=== PATIENT | male | born 1950 | race Caucasian/White ===

== ENCOUNTER 2019-07-19 09:46 | Day surgery (SDC) | payer MEDICARE, OTHER, SELFPAY ==
[2019-07-16 13:12] VITALS: BMI 33.5
[2019-07-19] VITALS (11 sets, daily range): BP systolic 130–175; BP diastolic 72–94; PULSE 82–96; RESP 14–24; TEMP 36.1–36.6; O2SAT 85–97; BMI 33.5
[2019-07-19] MEDS: LACTATED RINGERS 1,000 ML 42 ML IV (11:43)
--- NOTE | 2019-07-19 11:48 | PM.PREOP ---
Pre-operative Note Interval Note History & Physical reviewed/Exam performed by Physician: Yes Changes to H&P: No
[2019-07-19] MEDS: CEFAZOLIN 2 GM/100 ML FROZ.PIGGY IV (12:30)
--- NOTE | 2019-07-19 13:05 | SUR.OPER ---
Beach chair with Guerline/Carisa shoulder positioner. Lower body on padded OR bed. Head in foam padded head cradle, secured with straps. Non-operative arm secured along side Pillow under knees. Safety belt at thigh. Cloth tape over blanket over lower legs.
--- NOTE | 2019-07-19 13:15 | P.PCN_ITS ---
Procedures Date/Time Date of procedure: 07/19/19 Time of procedure: 12:12 General Procedure description: Ultrasound guided interscalene brachial plexus nerve block for post op pain control after right shoulder arthroscopic rotator cuff repair by Dr. Henry. Risk and benefits of procedure discussed with patient. ASA monitoring applied to patient. O2 given via nasal cannula. 1 mg Versed and 50 mcg fentanyl given for procedural sedation. Skin site was prepped with chlorhexidine and allowed to fully dry. Sterile gloves, mask, hat and probe cover were used to maintain sterility. 2% lidocaine and 30ga needle was used to make a small skin wheal at needle insertion site. Under ultrasound guidance, a 21ga 50mm Pajunk needle was directed into the interscalene groove (middle/anterior scalenes) near the brachial plexus. Patient reported no p arasthesias. After negative aspiration, 20 mL 0.5% ropivicaine and 10mg dexamethasone were injected around brachial plexus. Patient tolerated procedure well.
[2019-07-19] MEDS: BUPIVACAINE 0.5% W/ EPI (PF) VIAL 30 ML INJ (13:52)
[2019-07-19] MEDS: SODIUM CHLORIDE IRRIG SOLUTION 3,000 ML, EPINEPHrine 1 MG IRR (13:52)
--- NOTE | 2019-07-19 14:14 | P.OP_ITS ---
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 Degenerative changes to the labrum. No sign of any tearing of the biceps anchor for tearing of the biceps tendon. High- grade partial tear to the anterior portion of the supraspinatus with a small area of full-thickness tearing. Significant synovitis and bursitis in the subacromial in the subdeltoid space. Impingement lesion in the subacromial space. Closure Type: primary Specimen(s): none sent Applied: implant(s) (Single Arthrex SwiveLock anchor) Estimated Blood Loss (mL): 15 Blood products transfused: none Procedure in detail: On date of service, Patient was met in the holding area. The operative site was signed and witnessed by the OR staff. The surgeries once again discussed with the patient and any remaining questions they had were answered fully. Patient was taken back to the operating theater and placed on the operating table in a supine position. Great care was taken to ensure that all bony prominences were properly padded. Patient was then placed into the beach chair position. The head and neck were properly positioned and secured. A timeout was performed verifying patient's name, procedure, and the operative site. The upper extremity was then prepped and draped in the normal sterile fashion. Previously, the bony anatomy and portal sites were marked out as well as injected with Marcaine with epinephrine. An 11 blade was used to make an incision in the posterior aspect of the shoulder. The camera was placed, and a diagnostic shoulder scope was performed. Findings listed above. Next under direct visualization, a anterior portal was made. Next the camera was placed into the subacromial space. A lateral portal was obtained under direct visualization. A combination of the shaver and vapor wand, a debridement of the inflamed tissue as well as inflamed bursa was performed. The lateral gutter was also cleaned out. This gave us good visualization of the bursal aspect of the rotator cuff as well as the acromial arch. There was an obvious impingement lesion in the acromial arch. Next we turned our attention to the subacromial decompression. Next, a mechanical rasp was then used to do a subacromial decompression. This allowed us to convert the acromion to a type I acromial. This also allowed us to shave down the bony lesion in the acromial space. The rasp was placed into the lateral portal as well as the anterior portal in order to do a complete subacromial decompression. We next turned our attention to the distal clavicle. Using the shaver in the vapor wand we were able to clean out all the soft tissue around the distal clavicle as well as into the a.c. joint. This gave us good visualization of the arthritic changes to the distal clavicle as well as good of the a.c. joint allowing us to assess our distal clavicle excision. Of the inferior osteophytes coming off the distal clavicle. Using the mechanical rasp in the anterior portal, we were able to remove the inferior osteophytes as well as do a distal clavicle excision. The camera was then placed into the anterior portal which gave us a direct visualization of the a.c. joint allowing us to assess the distal clavicle excision. We then turned our attention to the rotator cuff tear. FiberTape was passed through the tear in a horizontal mattress fashion. This was then passed through a lateral anchor and then the lateral anchor was impacted into the anterior portion of the greater tuberosity. This provided a secure repair of the rotator cuff tear. The shoulder was then taken through range of motion and there was no sign of any additional impingement. Next, the suprascapular nerve was blocked. Patient's shoulder was then cleaned dried and dressed and patient was taken to the PACU in stable condition. Complications: none Post-operative Condition: stable Disposition: PACU Plan for aftercare: Patient will follow our postoperative protocol for rotator cuff repair
--- NOTE | 2019-07-19 14:24 | SUR.PREOP ---
Late entry: Block start time [1212] . Monitoring initiated and maintained throughout procedure. Oxygen 2 liters per nasal cannula placed per instructions of anesthesiologist and medications given by anesthesiologist. Patient remained stable throughout procedure, no adverse reactions noted. Block end time [1223]. And patient taken to the OR in stable condition.
--- NOTE | 2019-07-19 15:07 | SUR.PHASEI ---
Report to Viridiana
--- NOTE | 2019-07-19 16:23 | SUR.PHASEII ---
Care assumed from Viridiana RN, Pt placed on continuous pulse ox due to pt still requiring 02. )2 started at 4l and now down to 1/l. sats 91%. Pt instructed on incentive spirometer and can get it up to 750-900. instructed as well. Pt stood to void x2 fairly steady on feet. voids clear yellow urine. Dressing c/d/i.
--- NOTE | 2019-07-19 17:49 | SUR.PHASEII ---
Patient was held in phase II due to low sats. Placed on continuous pulse ox and titrated down from 5L to RA. Sats maintained btw 90-91. Dr Henry notified and order was placed for admission, but after MD conferred with pt it was decided to DC to home instead. Pt stated he felt fine and really didnt want to stay. Dressing had a minimal amount of breakthru bleeding so it was reinforced with 2 abd pads and medipore tape. Pt was a 2PA for dressing but walked to with 1PA assist for final void. He stated he felt even better now that he was actually moving about more. He was encouraged to use his spirometer q20 for the first hour, then q1hour after that. He was also instructed to use his CPAP once he arrived at home. Pt was escorted to ED entrance via [facility] by Sarah Kaufman RN.
== END 2019-07-19 17:48 | disposition home or self-care (01) ==
PROVIDERS: PCP Internal Medicine; Visit Provider Orthopaedic Surgery
PROC: (CPT 29827; principal; 2019-07-19 12:00)
DX: M75.111 Incomplete rotator cuff tear or rupture of right shoulder, not specified as traumatic (principal); M75.41 Impingement syndrome of right shoulder; M19.011 Primary osteoarthritis, right shoulder; S46.811A Strain of other muscles, fascia and tendons at shoulder and upper arm level, right arm, initial encounter; G89.18 Other acute postprocedural pain; M75.51 Bursitis of right shoulder; M65.811 Other synovitis and tenosynovitis, right shoulder
CPT/HCPCS: 29827; 29826; 29824; 29823; 64415; 64450; J0171; J0690; J1100; J2250; J2405; J2704; J3010